=== PATIENT | male | born 1980 | race Caucasian/White ===

== ENCOUNTER 2017-07-14 12:01 | Inpatient (IN) | payer OTHER ==
[2017-07-14 12:29] VITALS: BMI 22.6
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
[2017-07-14] MEDS ORDERED: LOPERAMIDE HCL 2 MG CAPSULE PO PRN (15:12)
[2017-07-14] MEDS ORDERED: guaiFENesin/D-METHORPHAN HB 10 ML UNIT-DOSE CUPS PO PRN (15:12)
[2017-07-14] MEDS ORDERED: IBUPROFEN 400 MG TABLET (FP) PO PRN (15:12)
[2017-07-14] MEDS ORDERED: MAG HYDROX/AL HYDROX/SIMETH 30 ML UNIT-DOSE CUP PO PRN (15:12)
[2017-07-14] MEDS ORDERED: MAGNESIUM CITRATE 300 ML BOTTLE PO PRN (15:12)
[2017-07-14] MEDS ORDERED: P-EPHED 60MG/TRIPROLIDI 2.5MG TABLET PO PRN (15:12)
[2017-07-14] MEDS ORDERED: MENTHOL/PHENOL 1 EACH UD MM PRN (15:12)
[2017-07-14] MEDS ORDERED: MAGNESIUM HYDROX 2400MG/30ML ORAL SUSPENSION 30 ML CUP PO PRN (15:12)
[2017-07-14] MEDS ORDERED: ACETAMINOPHEN 325 MG TABLET (FP) PO PRN (15:19)
[2017-07-14] MEDS ORDERED: METHADONE HCL 10 MG TABLET (FOR DETOX USE ONLY) PO ONE ×2 (15:30→23:00)
[2017-07-14] MEDS: diazePAM 5 MG TABLET PO PRN ×2 (17:09→22:21)
[2017-07-14] MEDS ORDERED: MELATONIN 5 MG TABLETS PO PRN (22:00)
[2017-07-14] MEDS: THIAMINE HCL 100 MG TABLET (FP) PO SCH (22:21)
[2017-07-14] MEDS: NICOTINE POLACRILEX 4 MG GUM BUC PRN (22:23)
[2017-07-15] MEDS: diazePAM 5 MG TABLET PO PRN ×5 (04:23→22:18)
--- NOTE | 2017-07-15 08:50 | EKG ---
Test Reason : Blood Pressure : / mmHG Vent. Rate : 076 BPM Atrial Rate : 076 BPM P-R Int : 132 ms QRS Dur : 100 ms QT Int : 380 ms P-R-T Axes : 047 -13 052 degrees QTc Int : 427 ms NORMAL SINUS RHYTHM NORMAL ECG NO PREVIOUS ECGS AVAILABLE Confirmed by CLARY GODINEZ, LUCIO ([id number]) on 07/15/2017 8:49:58 AM Referred By: Confirmed By:LUCIO MAENS MD
[2017-07-15] MEDS ORDERED: METHADONE HCL 10 MG TABLET (FOR DETOX USE ONLY) PO ONE (10:00)
[2017-07-15] MEDS: NICOTINE 21 MG/24 HOURS TOPICAL PATCH TD SCH (10:06)
[2017-07-15] MEDS: PRENATAL VITAMINS W/ FOLIC ACID TABLET (FP) PO SCH (10:06)
[2017-07-15 10:33] LABS: HEMATOCRIT 44.5 % (35.4-49); HEMOGLOBIN 14.6 GM/dL (11.7-16.9); MCH 28.3 pg (25.7-33.7); MCHC 32.8 g/dl (32.0-35.9); MEAN CELL VOLUME 86.3 fl (80-96); PLATELET COUNT 270 K/MM3 (134-434); RBC 5.15 M/mm3 (4.00-5.60); RDW 13.4 % (11.9-15.9); WHITE BLOOD COUNT 6.2 K/mm3 (4.0-10.0)
[2017-07-15 10:42] LABS: CHLORIDE 102 mmol/L (98-107); POTASSIUM 4.2 mmol/L (3.5-5.1); SODIUM 141 mmol/L (136-145)
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
[2017-07-15 11:01] LABS: ALBUMIN 3.7 g/dl (3.4-5.0); ALK PHOS 74 U/L (45-117); ANION GAP 4 (8-16); BILIRUBIN,TOTAL 0.5 mg/dL (0.2-1.0); BLOOD UREA NITROGEN 16 mg/dL (7-18); CALCIUM 8.8 mg/dL (8.5-10.1); CO2 35 mmol/L (21-32); GLUCOSE,RANDOM 103 mg/dL (74-106); SGOT/AST 13 U/L (15-37); SGPT/ALT 20 U/L (12-78); TOT PROT 6.9 g/dl (6.4-8.2)
--- NOTE | 2017-07-15 11:57 | PN ---
S COWS - Scale Resting Pulse: 0= [place] 80 or Below Sweatin= Chills/Flushing Restless Observation: 3= Extraneous Movement Pupil Size: 1= Pupils >than Normal Bone or Joint Aches: 2= Severe Diffuse Aches Runny Nose/ Eye Tearin= Nasal Congestion GI Upset > 30mins: 1= Stomach Cramp Tremor Observation of Outstretched Hands: 1= Tremor [place], Not Seen Yawning Observation: 2= >3x During Session Anxiety or Irritability: 4=Extreme Anxiety Goose Flesh Skin: 0=Smooth Skin COWS Score: 16 BHS Progress Note (SOAP) Subjective: Sleepless Muscle spasms Shakes Objective: 07/15/17 11:54 A & Ox 3 very Anxious Ambulatory steadily within unit Vital Signs Temperature 98.2 F 07/15/17 09:55 Pulse Rate 68 07/15/17 09:55 Respiratory Rate 18 07/15/17 09:55 Blood Pressure 136/82 07/15/17 09:55 O2 Sat by Pulse Oximetry (%) Laboratory Last Values WBC 6.2 K/mm3 (4.0-10.0) 07/15/17 07:55 RBC 5.15 M/mm3 (4.00-5.60) 07/15/17 07:55 Hgb 14.6 GM/dL (11.7-16.9) 07/15/17 07:55 Hct 44.5 % (35.4-49) 07/15/17 07:55 MCV 86.3 fl (80-96) 07/15/17 07:55 MCH 28.3 pg (25.7-33.7) 07/15/17 07:55 MCHC 32.8 g/dl (32.0-35.9) 07/15/17 07:55 RDW 13.4 % (11.9-15.9) 07/15/17 07:55 Plt Count 270 K/MM3 (134-434) 07/15/17 07:55 MPV 8.0 fl (7.5-11.1) 07/15/17 07:55 Sodium 141 mmol/L (136-145) 07/15/17 07:55 Potassium 4.2 mmol/L (3.5-5.1) 07/15/17 07:55 Chloride 102 mmol/L (98-107) 07/15/17 07:55 Carbon Dioxide 35 mmol/L (21-32) H 07/15/17 07:55 Anion Gap 4 (8-16) L 07/15/17 07:55 BUN 16 mg/dL (7-18) 07/15/17 07:55 Creatinine 1.0 mg/dL (0.7-1.3) D 07/15/17 07:55 Creat Clearance w eGFR > 60 (>60) 07/15/17 07:55 Random Glucose 103 mg/dL (74-106) 07/15/17 07:55 Calcium 8.8 mg/dL (8.5-10.1) 07/15/17 07:55 Total Bilirubin 0.5 mg/dL (0.2-1.0) D 07/15/17 07:55 AST 13 U/L (15-37) L 07/15/17 07:55 ALT 20 U/L (12-78) 07/15/17 07:55 Alkaline Phosphatase 74 U/L (45-117) 07/15/17 07:55 Total Protein 6.9 g/dl (6.4-8.2) 07/15/17 07:55 Albumin 3.7 g/dl (3.4-5.0) 07/15/17 07:55 RPR Titer Nonreactive (NONREACTIVE) 07/15/17 07:55 labs noted, UA pending Assessment: 07/15/17 11:56 withdrawal sx Plan: continue detox Flexeril for Muscle spasm Increase hydration
[2017-07-15] MEDS: CYCLOBENZAPRINE HCL 5 MG TABLET PO SCH (12:07)
[2017-07-15] MEDS: THIAMINE HCL 100 MG TABLET (FP) PO SCH (22:18)
[2017-07-15] MEDS: hydrOXYzine PAMOATE 50 MG CAPSULE (FP) PO PRN (22:19)
[2017-07-16] MEDS: diazePAM 5 MG TABLET PO PRN ×5 (03:41→19:31)
[2017-07-16] MEDS: hydrOXYzine PAMOATE 50 MG CAPSULE (FP) PO PRN (06:34)
[2017-07-16] MEDS ORDERED: METHADONE HCL 5 MG TABLET (FOR DETOX USE ONLY) PO ONE (10:00)
[2017-07-16] MEDS: NICOTINE 21 MG/24 HOURS TOPICAL PATCH TD SCH (10:05)
[2017-07-16] MEDS: PRENATAL VITAMINS W/ FOLIC ACID TABLET (FP) PO SCH (10:06)
[2017-07-16] MEDS: CYCLOBENZAPRINE HCL 5 MG TABLET PO SCH (10:06)
[2017-07-16] MEDS: NICOTINE POLACRILEX 4 MG GUM BUC PRN ×2 (11:29→15:33)
--- NOTE | 2017-07-16 13:45 | PN ---
BHS COWS - Scale Resting Pulse: 0= [place] 80 or Below Sweatin=Flushed/Facial Moisture Restless Observation: 1= Difficult to Sit Still Pupil Size: 0= Normal to Room Light Bone or Joint Aches: 1= Mild Discomfort Runny Nose/ Eye Tearin= Runny Nose/Eyes GI Upset > 30mins: 2= Nausea/Diarrhea Tremor Observation of Outstretched Hands: 2= Slight Tremor Visible Yawning Observation: 1= 1-2x During Session Anxiety or Irritability: 2=Irritable/Anxious Goose Flesh Skin: 0=Smooth Skin COWS Score: 13 BHS Progress Note (SOAP) Subjective: Interrupted sleep, Stomach Cramping, Anxious, Tremors, Diarrhea. Patient reports that he thinks that he "bit" by 2-3 bugs on the back of his neck a couple of days before he was admitted for Detox. Patient washed bugs off while taking shower. Patient notes that he was on side of [facility] just prior to to time when he washed bugs off of his neck. Aside form that, patient denies any other recent contact with any wooded areas. Objective: PATIENT A & O X 3, OBSERVED AMBULATING ON UNIT. NO ACUTE DISTRESS. TWO SMALL FLAT ERYHTEMATOUS AREAS NOTED ON BACK OF PATIENT'S NECK. AREAS NOT ELEVATED. NO UNUSUAL DISCHARGE NOTED AT AFFECTED SITES. NO "BULLSEYE RASH" LESION NOTED AT SITE. PATIENT CURRENTLY AFEBRILE. 07/16/17 13:41 Vital Signs Temperature 95.8 F L 07/16/17 13:26 Pulse Rate 60 07/16/17 13:26 Respiratory Rate 18 07/16/17 13:26 Blood Pressure 137/72 07/16/17 13:26 O2 Sat by Pulse Oximetry (%) Laboratory Tests 07/15/17 07/15/17 07/15/17 07:55 07:55 07:55 WBC 6.2 RBC 5.15 Hgb 14.6 Hct 44.5 MCV 86.3 MCH 28.3 MCHC 32.8 RDW 13.4 Plt Count 270 MPV 8.0 Sodium 141 Potassium 4.2 Chloride 102 Carbon Dioxide 35 H Anion Gap 4 L BUN 16 Creatinine 1.0 D Creat Clearance w eGFR > 60 Random Glucose 103 Calcium 8.8 Total Bilirubin 0.5 D AST 13 L ALT 20 Alkaline Phosphatase 74 Total Protein 6.9 Albumin 3.7 RPR Titer HIV 1&2 Antibody Screen Negative HIV P24 Antigen Negative 07/15/17 07:55 WBC RBC Hgb Hct MCV MCH MCHC RDW Plt Count MPV Sodium Potassium Chloride Carbon Dioxide Anion Gap BUN Creatinine Creat Clearance w eGFR Random Glucose Calcium Total Bilirubin AST ALT Alkaline Phosphatase Total Protein Albumin RPR Titer Nonreactive HIV 1&2 Antibody Screen HIV P24 Antigen LABS NOTED. UA RESULTS PENDING. 07/16/17 13:47 07/16/17 14:25 Assessment: 07/16/17 13:45 WITHDRAWAL SYMPTOMS. Plan: CONTINUE DETOX. PER RECOMMENDATION OF [facility] GAIL JONES, NEITHER PROPHYLACTIC DOXYCYCLINE NOR LYME AB TITER INDICATED AT THIS TIME. WILL CONTINUE TO MONITOR PATIENT FOR ANY UNUSUAL NEWLY DEVELOPING SYMPTOMS. PATIENT ADVISED TO FOLLOW-UP WITH MERCHANDISING LEAD AFTER DISCHARGE FROM DETOX FOR FURTHER EVALUATION.
[2017-07-16 20:23] LABS: URINE APPEARANCE CLEAR; URINE BILIRUBIN NEGATIVE (<2.0 mg/dL); URINE COLOR COLORLESS; URINE GLUCOSE (UA) NEGATIVE (NEGATIVE); URINE KETONE NEGATIVE (NEGATIVE); URINE LEUK ESTERASE NEGATIVE (NEGATIVE); URINE NITRITE NEGATIVE (NEGATIVE); URINE PROTEIN NEGATIVE (NEGATIVE); URINE UROBILINOGEN NEGATIVE mg/dL (0.2-1.0)
[2017-07-16] MEDS: ZOLPIDEM TARTRATE 10 MG TABLET (PARK CARE ONLY) PO PRN (22:17)
[2017-07-16] MEDS: THIAMINE HCL 100 MG TABLET (FP) PO SCH (22:17)
[2017-07-17] MEDS: diazePAM 5 MG TABLET PO PRN ×3 (03:42→11:55)
[2017-07-17] MEDS: hydrOXYzine PAMOATE 50 MG CAPSULE (FP) PO PRN ×3 (05:43→20:01)
[2017-07-17] MEDS ORDERED: METHADONE HCL 5 MG TABLET (FOR DETOX USE ONLY) PO ONE (10:00)
[2017-07-17] MEDS: CYCLOBENZAPRINE HCL 5 MG TABLET PO SCH (10:10)
[2017-07-17] MEDS: PRENATAL VITAMINS W/ FOLIC ACID TABLET (FP) PO SCH (10:10)
[2017-07-17] MEDS: NICOTINE 21 MG/24 HOURS TOPICAL PATCH TD SCH (10:10)
[2017-07-17] MEDS: NICOTINE POLACRILEX 4 MG GUM BUC PRN ×4 (10:12→22:24)
--- NOTE | 2017-07-17 14:08 | PN ---
BHS Progress Note (SOAP) Subjective: Sweating, Body Aches, Stomach Cramping, Tremors, Diarrhea, Body Aches. Objective: PATIENT A & O X 3, OBSERVED AMBULATING ON UNIT. NO ACUTE DISTRESS. NO UNUSUAL RASH, SKIN LESIONS, ERYTHEMA, OR DISCOLORATION NOTED ON EXAMINATION OF BACK OF PATIENT'S NECK TODAY. 07/17/17 14:04 Vital Signs Temperature 98.4 F 07/17/17 13:38 Pulse Rate 97 H 07/17/17 13:38 Respiratory Rate 20 07/17/17 13:38 Blood Pressure 138/84 07/17/17 13:38 O2 Sat by Pulse Oximetry (%) Laboratory Tests 07/15/17 07/15/17 07/15/17 07:55 07:55 07:55 WBC 6.2 RBC 5.15 Hgb 14.6 Hct 44.5 MCV 86.3 MCH 28.3 MCHC 32.8 RDW 13.4 Plt Count 270 MPV 8.0 Sodium 141 Potassium 4.2 Chloride 102 Carbon Dioxide 35 H Anion Gap 4 L BUN 16 Creatinine 1.0 D Creat Clearance w eGFR > 60 Random Glucose 103 Calcium 8.8 Total Bilirubin 0.5 D AST 13 L ALT 20 Alkaline Phosphatase 74 Total Protein 6.9 Albumin 3.7 Urine Color Urine Appearance Urine pH Ur Specific [place] Urine Protein Urine Glucose (UA) Urine Ketones Urine Blood Urine Nitrite Urine Bilirubin Urine Urobilinogen Ur Leukocyte Esterase RPR Titer HIV 1&2 Antibody Screen Negative HIV P24 Antigen Negative 07/15/17 07/16/17 07:55 16:00 WBC RBC Hgb Hct MCV MCH MCHC RDW Plt Count MPV Sodium Potassium Chloride Carbon Dioxide Anion Gap BUN Creatinine Creat Clearance w eGFR Random Glucose Calcium Total Bilirubin AST ALT Alkaline Phosphatase Total Protein Albumin Urine Color Colorless Urine Appearance Clear Urine pH 6.0 Ur Specific [place] 1.005 Urine Protein Negative Urine Glucose (UA) Negative Urine Ketones Negative Urine Blood Negative Urine Nitrite Negative Urine Bilirubin Negative Urine Urobilinogen Negative Ur Leukocyte Esterase Negative RPR Titer Nonreactive HIV 1&2 Antibody Screen HIV P24 Antigen LABS NOTED. 07/17/17 14:06 Assessment: 07/17/17 14:05 WITHDRAWAL SYMPTOMS. Plan: CONTINUE DETOX. PRN FLEXERIL PO FOR BODY ACHES / MUSCLE SPASMS. INCREASE DAILY PO FLUID INTAKE.
[2017-07-17] MEDS: CYCLOBENZAPRINE HCL 10 MG TABLET (FP) PO PRN ×2 (16:01→22:21)
[2017-07-17] MEDS: ZOLPIDEM TARTRATE 10 MG TABLET (PARK CARE ONLY) PO PRN (22:21)
[2017-07-17] MEDS: THIAMINE HCL 100 MG TABLET (FP) PO SCH (22:21)
[2017-07-18] MEDS: hydrOXYzine PAMOATE 50 MG CAPSULE (FP) PO PRN ×5 (00:44→20:59)
[2017-07-18] MEDS: CYCLOBENZAPRINE HCL 10 MG TABLET (FP) PO PRN (06:25)
[2017-07-18] MEDS ORDERED: METHADONE HCL 10 MG TABLET (FOR DETOX USE ONLY) PO ONE (10:00)
[2017-07-18] MEDS: NICOTINE POLACRILEX 4 MG GUM BUC PRN ×5 (10:25→19:49)
[2017-07-18] MEDS: NICOTINE 21 MG/24 HOURS TOPICAL PATCH TD SCH (10:25)
[2017-07-18] MEDS: PRENATAL VITAMINS W/ FOLIC ACID TABLET (FP) PO SCH (10:25)
--- NOTE | 2017-07-18 11:33 | PN ---
BHS Progress Note (SOAP) Subjective: ANXIETY MUSCLE SPASM/CRAMPS, SWEATS, INTERMITTENT SLEEP. Objective: 07/18/17 11:29 Vital Signs Temperature 97.3 F L 07/18/17 09:17 Pulse Rate 80 07/18/17 09:17 Respiratory Rate 20 07/18/17 09:17 Blood Pressure 125/78 07/18/17 09:17 O2 Sat by Pulse Oximetry (%) Laboratory Tests 07/15/17 07/15/17 07/15/17 07:55 07:55 07:55 WBC 6.2 RBC 5.15 Hgb 14.6 Hct 44.5 MCV 86.3 MCH 28.3 MCHC 32.8 RDW 13.4 Plt Count 270 MPV 8.0 Sodium 141 Potassium 4.2 Chloride 102 Carbon Dioxide 35 H Anion Gap 4 L BUN 16 Creatinine 1.0 D Creat Clearance w eGFR > 60 Random Glucose 103 Calcium 8.8 Total Bilirubin 0.5 D AST 13 L ALT 20 Alkaline Phosphatase 74 Total Protein 6.9 Albumin 3.7 Urine Color Urine Appearance Urine pH Ur Specific [place] Urine Protein Urine Glucose (UA) Urine Ketones Urine Blood Urine Nitrite Urine Bilirubin Urine Urobilinogen Ur Leukocyte Esterase RPR Titer HIV 1&2 Antibody Screen Negative HIV P24 Antigen Negative 07/15/17 07/16/17 07:55 16:00 WBC RBC Hgb Hct MCV MCH MCHC RDW Plt Count MPV Sodium Potassium Chloride Carbon Dioxide Anion Gap BUN Creatinine Creat Clearance w eGFR Random Glucose Calcium Total Bilirubin AST ALT Alkaline Phosphatase Total Protein Albumin Urine Color Colorless Urine Appearance Clear Urine pH 6.0 Ur Specific [place] 1.005 Urine Protein Negative Urine Glucose (UA) Negative Urine Ketones Negative Urine Blood Negative Urine Nitrite Negative Urine Bilirubin Negative Urine Urobilinogen Negative Ur Leukocyte Esterase Negative RPR Titer Nonreactive HIV 1&2 Antibody Screen HIV P24 Antigen Assessment: 07/18/17 11:29 WITHDRAWAL SX Plan: CONTINUE DETOX CHANGE FLEXERIL PRN SCHEDULED DOSES.
[2017-07-18] MEDS: CYCLOBENZAPRINE HCL 10 MG TABLET (FP) PO SCH ×2 (15:09→22:16)
[2017-07-18] MEDS: ZOLPIDEM TARTRATE 10 MG TABLET (PARK CARE ONLY) PO PRN (21:59)
[2017-07-18] MEDS: THIAMINE HCL 100 MG TABLET (FP) PO SCH (22:16)
[2017-07-19] MEDS: hydrOXYzine PAMOATE 50 MG CAPSULE (FP) PO PRN ×2 (01:00→08:30)
[2017-07-19] MEDS: CYCLOBENZAPRINE HCL 10 MG TABLET (FP) PO SCH (05:32)
[2017-07-19] MEDS ORDERED: METHADONE HCL 5 MG TABLET (FOR DETOX USE ONLY) PO ONE (06:00)
[2017-07-19 07:29] VITALS: BP 124/87; PULSE 94; TEMP 98.2
[2017-07-19] MEDS: NICOTINE POLACRILEX 4 MG GUM BUC PRN (08:30)
--- NOTE | 2017-07-19 14:27 | PN ---
BHS Progress Note (SOAP) Subjective: DETOX COMPLETED. PT REPORTS HAS A PMD DR. HUE LUNSFORD AT [facility]. Objective: 07/19/17 14:26 Vital Signs 07/19/17 07:27 Temperature 98.2 F Pulse Rate 94 H Respiratory 20 Rate Blood Pressure 124/87 Laboratory Tests 07/15/17 07/15/17 07/15/17 07:55 07:55 07:55 WBC 6.2 RBC 5.15 Hgb 14.6 Hct 44.5 MCV 86.3 MCH 28.3 MCHC 32.8 RDW 13.4 Plt Count 270 MPV 8.0 Sodium 141 Potassium 4.2 Chloride 102 Carbon Dioxide 35 H Anion Gap 4 L BUN 16 Creatinine 1.0 D Creat Clearance w eGFR > 60 Random Glucose 103 Calcium 8.8 Total Bilirubin 0.5 D AST 13 L ALT 20 Alkaline Phosphatase 74 Total Protein 6.9 Albumin 3.7 Urine Color Urine Appearance Urine pH Ur Specific [place] Urine Protein Urine Glucose (UA) Urine Ketones Urine Blood Urine Nitrite Urine Bilirubin Urine Urobilinogen Ur Leukocyte Esterase RPR Titer HIV 1&2 Antibody Screen Negative HIV P24 Antigen Negative 07/15/17 07/16/17 07:55 16:00 WBC RBC Hgb Hct MCV MCH MCHC RDW Plt Count MPV Sodium Potassium Chloride Carbon Dioxide Anion Gap BUN Creatinine Creat Clearance w eGFR Random Glucose Calcium Total Bilirubin AST ALT Alkaline Phosphatase Total Protein Albumin Urine Color Colorless Urine Appearance Clear Urine pH 6.0 Ur Specific [place] 1.005 Urine Protein Negative Urine Glucose (UA) Negative Urine Ketones Negative Urine Blood Negative Urine Nitrite Negative Urine Bilirubin Negative Urine Urobilinogen Negative Ur Leukocyte Esterase Negative RPR Titer Nonreactive HIV 1&2 Antibody Screen HIV P24 Antigen Assessment: 07/19/17 14:26 MEDICALLY STABLE Plan: D/C PT TODAY. FOLLOW UP WITH AFTERCARE.
--- NOTE | 2017-07-19 14:30 | DS ---
[facility] Detox Discharge Summary Admission Date: 07/14/17 Discharge Date: 07/19/17 - History Present History: Cocaine Dependence, Opioid Dependence, Sedative Dependence Additional Comments: DETOX COMPLETED. ALERT O X 3. NAD. PT TO F/U WITH HIS PMD DR. LUNSFORD FOR [facility] NEEDED. Pertinent Past History: PLEASE SEE DX BELOW - Physical Exam Results Vital Signs: Vital Signs Temperature 98.2 F 07/19/17 07:27 Pulse Rate 94 H 07/19/17 07:27 Respiratory Rate 20 07/19/17 07:27 Blood Pressure 124/87 07/19/17 07:27 O2 Sat by Pulse Oximetry (%) Pertinent Admission Physical Exam Findings: WITHDRAWAL SX Laboratory Tests 07/15/17 07/15/17 07/15/17 07:55 07:55 07:55 WBC 6.2 RBC 5.15 Hgb 14.6 Hct 44.5 MCV 86.3 MCH 28.3 MCHC 32.8 RDW 13.4 Plt Count 270 MPV 8.0 Sodium 141 Potassium 4.2 Chloride 102 Carbon Dioxide 35 H Anion Gap 4 L BUN 16 Creatinine 1.0 D Creat Clearance w eGFR > 60 Random Glucose 103 Calcium 8.8 Total Bilirubin 0.5 D AST 13 L ALT 20 Alkaline Phosphatase 74 Total Protein 6.9 Albumin 3.7 Urine Color Urine Appearance Urine pH Ur Specific [place] Urine Protein Urine Glucose (UA) Urine Ketones Urine Blood Urine Nitrite Urine Bilirubin Urine Urobilinogen Ur Leukocyte Esterase RPR Titer HIV 1&2 Antibody Screen Negative HIV P24 Antigen Negative 07/15/17 07/16/17 07:55 16:00 WBC RBC Hgb Hct MCV MCH MCHC RDW Plt Count MPV Sodium Potassium Chloride Carbon Dioxide Anion Gap BUN Creatinine Creat Clearance w eGFR Random Glucose Calcium Total Bilirubin AST ALT Alkaline Phosphatase Total Protein Albumin Urine Color Colorless Urine Appearance Clear Urine pH 6.0 Ur Specific [place] 1.005 Urine Protein Negative Urine Glucose (UA) Negative Urine Ketones Negative Urine Blood Negative Urine Nitrite Negative Urine Bilirubin Negative Urine Urobilinogen Negative Ur Leukocyte Esterase Negative RPR Titer Nonreactive HIV 1&2 Antibody Screen HIV P24 Antigen - Treatment Hospital Course: Detox Protocol Followed, Detoxed Safely, Responded well, Discharged Condition Good - Medication Discharge Medications: Ambulatory Orders NK [No Known Home Medication] 09/27/14 - Diagnosis (1) Opioid dependence with withdrawal Status: Acute (2) Benzodiazepine dependence Status: Chronic (3) Cocaine dependence Status: Acute Qualifiers: Substance use status: uncomplicated Qualified Code(s): F14.20 - Cocaine dependence, uncomplicated (4) History of back surgery Status: Chronic (5) Insomnia Status: Chronic Qualifiers: Insomnia type: unspecified Qualified Code(s): G47.00 - Insomnia, unspecified (6) Nicotine dependence Status: Acute Qualifiers: Nicotine product type: cigarettes Substance use status: in withdrawal Qualified Code(s): F17.213 - Nicotine dependence, cigarettes, with withdrawal (7) Weight loss Status: Acute - AMA Did Patient Leave Against Medical Advice: No
== END 2017-07-19 08:50 | disposition home or self-care (01) | DRG 773 ==
LOC: YASAS 12:01 → Y3N 15:20
PROVIDERS: ADMIT Internal Medicine; ATTEND Internal Medicine
PROC: HZ2ZZZZ Detoxification Services for Substance Abuse Treatment (ICD-10-PCS; principal; 2017-07-14)
DX: F11.23 Opioid dependence with withdrawal (principal); F13.20 Sedative, hypnotic or anxiolytic dependence, uncomplicated; F14.20 Cocaine dependence, uncomplicated; F17.210 Nicotine dependence, cigarettes, uncomplicated; F19.24 Other psychoactive substance dependence with psychoactive substance-induced mood disorder; F41.9 Anxiety disorder, unspecified; F32.9 Major depressive disorder, single episode, unspecified; G47.00 Insomnia, unspecified; R63.4 Abnormal weight loss; Z68.22 Body mass index [BMI] 22.0-22.9, adult
CPT/HCPCS: 36415; 80053; 81003; 85027; 86593; 87389; 93005; 93010